=== PATIENT | male | born 1960 | race African-American/Black ===

== ENCOUNTER 2021-12-19 12:13 | Inpatient (IN) | payer OTHER ==
[2021-12-19] MEDS ORDERED: METHOCARBAMOL 500 MG TABLET PO PRN (13:47)
[2021-12-19] MEDS ORDERED: IBUPROFEN 400 MG TABLET (FP) PO PRN (13:47)
[2021-12-19] MEDS ORDERED: NICOTINE 10 MG CARTRIDGE (INHALER) IH PRN (13:47)
[2021-12-19] MEDS ORDERED: MAGNESIUM CITRATE 300 ML BOTTLE PO PRN (13:47)
[2021-12-19] MEDS ORDERED: ACETAMINOPHEN 325 MG TABLET (FP) PO PRN ×2 (13:47)
[2021-12-19] MEDS ORDERED: chlordiazePOXIDE HCL 25 MG CAPSULE PO PRN (13:47)
[2021-12-19] MEDS ORDERED: BENZOCAINE/MENTHOL (CHLORASEPTIC ) LOZENGE MM PRN (13:47)
[2021-12-19] MEDS ORDERED: BISMUTH SUBSALICYLATE 262 MG/15 ML BTL PO PRN (13:47)
[2021-12-19] MEDS ORDERED: ONDANSETRON *ODT* 4 MG TABLET SL PRN (13:47)
[2021-12-19] MEDS ORDERED: DICYCLOMINE HCL 10 MG CAPSULE PO PRN (13:47)
[2021-12-19] MEDS ORDERED: LOPERAMIDE HCL 2 MG CAPSULE PO PRN (13:47)
[2021-12-19] MEDS ORDERED: MAG HYDROX/AL HYDROX/SIMETH 30 ML UNIT-DOSE CUP PO PRN (13:47)
[2021-12-19] MEDS ORDERED: MAGNESIUM HYDROX 2400MG/30ML ORAL SUSPENSION 30 ML CUP PO PRN (13:47)
[2021-12-19 14:33] VITALS: BMI 26.0
[2021-12-19] MEDS ORDERED: chlordiazePOXIDE HCL 25 MG CAPSULE PO SCH (17:00)
[2021-12-19] MEDS: hydrOXYzine PAMOATE 25 MG CAPSULE (FP) PO SCH ×2 (18:47→22:39)
[2021-12-19] MEDS: traZODone HCL 50 MG TABLET (FP) PO SCH (22:38)
[2021-12-19] MEDS: risperiDONE 1 MG TABLET PO SCH (22:38)
[2021-12-19] MEDS: THIAMINE HCL 100 MG TABLET (FP) PO SCH (22:38)
[2021-12-19] MEDS: MELATONIN 5 MG TABLETS PO SCH (22:39)
[2021-12-20] MEDS: hydrOXYzine PAMOATE 25 MG CAPSULE (FP) PO SCH ×5 (05:54→22:56)
[2021-12-20] MEDS: PRENATAL VITAMINS W/ FOLIC ACID TABLET (FP) PO SCH (11:01)
[2021-12-20 12:04] LABS: CHLORIDE 102 mmol/L (98-107); SODIUM 137 mmol/L (136-145)
[2021-12-20 12:06] LABS: HEMOGLOBIN 12.4 GM/dL (11.7-16.9); MCHC 32.6 g/dl (32.0-35.9); MEAN CELL VOLUME 92.1 fl (80-96); PLATELET COUNT 161 10^3/uL (134-434); RBC 4.13 M/mm3 (4.00-5.60); WHITE BLOOD COUNT 7.9 K/mm3 (4.0-10.0)
[2021-12-20 12:40] LABS: BLOOD UREA NITROGEN 9.3 mg/dL (7-18)
[2021-12-20 12:41] LABS: ALBUMIN 3.2 g/dl (3.4-5.0); ANION GAP 8 MMOL/L (8-16); CO2 27 mmol/L (21-32)
[2021-12-20 12:42] LABS: CALCIUM 8.5 mg/dL (8.5-10.1)
[2021-12-20 12:45] LABS: SGOT/AST 8 U/L (15-37); SGPT/ALT 12 U/L (13-61)
[2021-12-20 12:46] LABS: BILIRUBIN,TOTAL 0.4 mg/dL (0.2-1)
[2021-12-20 12:47] LABS: ALK PHOS 115 U/L (45-117)
[2021-12-20 12:48] LABS: GLUCOSE,RANDOM 499 mg/dL (74-106)
[2021-12-20] MEDS ORDERED: INSULIN (NOVOLOG) ASPART 100 UNITS/ML 10ML VIAL ONE ×2 (13:04→17:52)
[2021-12-20] MEDS ORDERED: Insulin (LOG) Aspart 100 UNITS/ML VIAL SQ ONE (13:16)
[2021-12-20] MEDS ORDERED: INSULIN SLIDING SCALE (NOVOLOG) 1 VIAL SQ SCH (16:30)
[2021-12-20] MEDS: INSULIN SLIDING SCALE (NOVOLOG) 1 VIAL SQ SCH (17:50)
[2021-12-20] MEDS: risperiDONE 1 MG TABLET PO SCH (22:55)
[2021-12-20] MEDS: THIAMINE HCL 100 MG TABLET (FP) PO SCH (22:55)
[2021-12-20] MEDS: MELATONIN 5 MG TABLETS PO SCH (22:55)
[2021-12-20] MEDS: traZODone HCL 50 MG TABLET (FP) PO SCH (22:55)
[2021-12-21] MEDS ORDERED: chlordiazePOXIDE HCL 25 MG CAPSULE PO SCH (05:00)
[2021-12-21] MEDS: hydrOXYzine PAMOATE 25 MG CAPSULE (FP) PO SCH ×5 (05:42→23:12)
[2021-12-21] MEDS: INSULIN SLIDING SCALE (NOVOLOG) 1 VIAL SQ SCH ×3 (07:36→16:54)
[2021-12-21] MEDS: LOSARTAN 50MG/HCTZ 12.5MG 1 TAB PO SCH (10:52)
[2021-12-21] MEDS: PRENATAL VITAMINS W/ FOLIC ACID TABLET (FP) PO SCH (10:52)
[2021-12-21] MEDS ORDERED: INSULIN (NOVOLOG) ASPART 100 UNITS/ML 10ML VIAL ONE (16:57)
[2021-12-21 19:08] LABS: SARS-CoV-2 NAA Not Detected (Not Detected)
[2021-12-21] MEDS ORDERED: INSULIN (LEVEMIR) 100 UNITS/ML UNITS SQ SCH (22:00)
[2021-12-21] MEDS: MELATONIN 5 MG TABLETS PO SCH (23:12)
[2021-12-21] MEDS: risperiDONE 1 MG TABLET PO SCH (23:12)
[2021-12-21] MEDS: traZODone HCL 50 MG TABLET (FP) PO SCH (23:12)
[2021-12-21] MEDS: THIAMINE HCL 100 MG TABLET (FP) PO SCH (23:12)
[2021-12-22] MEDS ORDERED: chlordiazePOXIDE HCL 10 MG CAPSULE PO PRN
[2021-12-22] MEDS ORDERED: chlordiazePOXIDE HCL 10 MG CAPSULE PO SCH (05:00)
[2021-12-22] MEDS: hydrOXYzine PAMOATE 25 MG CAPSULE (FP) PO SCH ×3 (07:15→14:08)
[2021-12-22] MEDS: INSULIN SLIDING SCALE (NOVOLOG) 1 VIAL SQ SCH ×2 (07:30→11:24)
[2021-12-22] MEDS: PRENATAL VITAMINS W/ FOLIC ACID TABLET (FP) PO SCH (10:35)
[2021-12-22] MEDS: LOSARTAN 50MG/HCTZ 12.5MG 1 TAB PO SCH (10:35)
[2021-12-22] MEDS ORDERED: INSULIN (NOVOLOG) ASPART 100 UNITS/ML 10ML VIAL ONE (11:20)
[2021-12-22 13:02] VITALS: TEMP 96.9
[2021-12-22 13:46] VITALS: BP 139/72; PULSE 92
[2021-12-22] MEDS ORDERED: INSULIN SLIDING SCALE (NOVOLOG) 1 VIAL SQ SCH (16:30)
[2021-12-23] MEDS ORDERED: chlordiazePOXIDE HCL 10 MG CAPSULE PO SCH (05:00)
[2021-12-24] MEDS ORDERED: chlordiazePOXIDE HCL 10 MG CAPSULE PO ONE (05:00)
== END 2021-12-22 14:09 | disposition home or self-care (01) | DRG 897 ==
LOC: YASAS 12:13 → UNDOADMIN 14:58 → Y6N 14:58 → UNDODISIN 12-22 14:09
PROVIDERS: ADMIT Allergy & Immunology; ATTEND Allergy & Immunology
PROC: HZ2ZZZZ Detoxification Services for Substance Abuse Treatment (ICD-10-PCS; principal; 2021-12-19)
DX: F10.230 Alcohol dependence with withdrawal, uncomplicated (principal); F14.20 Cocaine dependence, uncomplicated; F19.282 Other psychoactive substance dependence with psychoactive substance-induced sleep disorder; L97.411 Non-pressure chronic ulcer of right heel and midfoot limited to breakdown of skin; I69.854 Hemiplegia and hemiparesis following other cerebrovascular disease affecting left non-dominant side; F17.210 Nicotine dependence, cigarettes, uncomplicated; F31.9 Bipolar disorder, unspecified; F20.9 Schizophrenia, unspecified; F19.24 Other psychoactive substance dependence with psychoactive substance-induced mood disorder; E11.65 Type 2 diabetes mellitus with hyperglycemia; E11.621 Type 2 diabetes mellitus with foot ulcer; Z79.4 Long term (current) use of insulin; Z99.89 Dependence on other enabling machines and devices; Z56.0 Unemployment, unspecified; Z59.00 Homelessness unspecified
CPT/HCPCS: 36415; 71045-TC-FY; 80053; 82962; 85027; 86780; 93005; 93010; C9803-CS; J2794; U0003; U0005

== ENCOUNTER 2024-11-12 13:36 | Emergency (ER) | payer OTHER ==
[2024-11-12 14:00] VITALS: RESP 18; BMI 22.8
[2024-11-12] MEDS ORDERED: IBUPROFEN 400 MG TABLET (FP) PO ONE (14:48)
[2024-11-12] MEDS ORDERED: oxyCODONE HCL 5 MG TABLET ONE (14:48)
[2024-11-12] MEDS: oxyCODONE HCL 5 MG TABLET PO ONE (14:54)
[2024-11-12] MEDS: IBUPROFEN 400 MG TABLET (FP) PO ONE (14:54)
[2024-11-12 22:15] VITALS: BP 153/73; PULSE 73; TEMP 98.4
== END 2024-11-12 22:19 ==
LOC: MERGE 13:36 → JER 13:36 → EDSEX 13:36 → JER 22:19
DX: G89.18 Other acute postprocedural pain (principal); M54.50 Low back pain, unspecified; R10.30 Lower abdominal pain, unspecified
CPT/HCPCS: 82962; 99283-25

== ENCOUNTER 2024-12-18 23:38 | Observation (INO) | payer OTHER ==
[2024-12-19 00:18] VITALS: BMI 31.4
[2024-12-19] MEDS ORDERED: ACETAMINOPHEN INJECTION 100 ML ONE (00:19)
[2024-12-19] MEDS: ACETAMINOPHEN 1000 MG/100 ML BAG IVPB ONE (00:25)
[2024-12-19 01:00] LABS: INR 1.08 (0.83-1.09); PROTHROMBIN TIME (PATIENT) 11.8 SEC (9.7-13.0)
[2024-12-19 01:02] LABS: ACTIVATED PTT 25.4 SECONDS (25.2-36.5)
[2024-12-19 01:03] LABS: ABSOLUTE IMMATURE GRANULOCYTES 0.01 x10^3/uL (0.0-0.031); BASOPHILS # 0.05 x10^3/uL (0.01-0.08); EOSINOPHIL % 1.5 % (0.8-7.0); EOSINOPHILS # 0.09 x10^3/uL (0.04-0.54); MCHC 32.4 g/dl (32.3-36.5); MEAN CELL VOLUME 92.9 fl (79.0-92.2); MEAN PLT VOLUME 10.7 fl (9.4-12.4); MONOCYTE # 0.53 x10^3/uL (0.30-0.82); MONOCYTE % 8.7 % (5.3-12.2); PLATELET COUNT 204 x10^3/uL (163-337); RDW 13.1 % (12.2-16.4)
[2024-12-19 01:08] LABS: POTASSIUM 3.7 mmol/L (3.5-5.1)
[2024-12-19 01:10] LABS: ALBUMIN 3.3 g/dl (3.4-5.0); BLOOD UREA NITROGEN 13.3 mg/dL (7-18); CALCIUM 8.8 mg/dL (8.5-10.1)
[2024-12-19 01:14] LABS: CREATININE 0.8 mg/dL (0.55-1.3)
[2024-12-19 01:15] LABS: BILIRUBIN,TOTAL 0.4 mg/dL (0.2-1); TOT PROT 6.4 g/dl (6.4-8.2)
[2024-12-19] MEDS ORDERED: MORPHINE SULFATE 2 MG/ML SYRINGE IVPUSH PRN (02:15)
[2024-12-19] MEDS ORDERED: NITROGLYCERIN SUBLINGUAL 1/150 0.4 MG TAB SL PRN (02:15)
[2024-12-19] MEDS ORDERED: ACETAMINOPHEN 325 MG TABLET (FP) PO PRN (03:10)
[2024-12-19] MEDS ORDERED: PATIENT'S OWN MEDICATION (NON-FORMULARY) (Dulaglutide [Trulicity] 1.5 MG/0.5 ML Pen.Injctr SQ SCH (03:15)
[2024-12-19] MEDS ORDERED: traZODone HCL 100 MG TABLET (FP) ONE (03:41)
[2024-12-19] MEDS: traZODone HCL 50 MG TABLET (FP) PO ONE (04:09)
[2024-12-19] MEDS: MELATONIN 1 MG TABLET PO ONE (04:09)
[2024-12-19 04:58] VITALS: BP 135/90; PULSE 65; RESP 18; TEMP 97.5
[2024-12-19] MEDS: INSULIN (NOVOLOG) ASPART 100 UNITS/ML 10ML VIAL SQ SCH (06:13)
[2024-12-19] MEDS: INSULIN ASPART SLIDING SCALE (NOVOLOG) 1 VIAL SQ SCH (06:13)
[2024-12-19] MEDS ORDERED: INSULIN (NOVOLOG) ASPART 100 UNITS/ML 10ML VIAL SQ SCH (07:00)
[2024-12-19] MEDS: POLYETHYLENE GLYCOL (HEALTHYLAX) 3350 17 GM PACKET PO SCH (09:48)
[2024-12-19] MEDS: ASCORBIC ACID 500 MG TABLET (FP) PO SCH (09:49)
[2024-12-19] MEDS: PANTOPRAZOLE 40 MG TABLET PO SCH (09:49)
[2024-12-19] MEDS: ASPIRIN COATED 81 MG TABLET.EC PO SCH (09:49)
[2024-12-19] MEDS: ENOXAPARIN NA (PORCINE) 40 MG/0.4 ML DISP.SYRIN SQ SCH (09:50)
[2024-12-19] MEDS: ARTIFICIAL TEARS OPHTHALMIC DROPS OU SCH (09:50)
[2024-12-19] MEDS ORDERED: ASPIRIN COATED 81 MG TABLET.EC PO SCH (10:00)
[2024-12-19] MEDS: risperiDONE 1 MG TABLET PO SCH (11:38)
[2024-12-19] MEDS ORDERED: CLOPIDOGREL BISULFATE 75 MG TABLET (FP) PO SCH (22:00)
[2024-12-19] MEDS ORDERED: SENNOSIDES 8.6MG TABLET (FP) PO SCH (22:00)
[2024-12-19] MEDS ORDERED: traZODone HCL 100 MG TABLET (FP) PO SCH (22:00)
[2024-12-19] MEDS ORDERED: INSULIN GLARGINE (LANTUS) 100 UNITS/ML UNITS SQ SCH ×2 (22:00)
[2024-12-19] MEDS ORDERED: ATORVASTATIN CA 80 MG TABLET (FP) PO SCH (22:00)
[2024-12-19] MEDS ORDERED: MELATONIN 1 MG TABLET PO SCH (22:00)
[2024-12-19] MEDS ORDERED: ATORVASTATIN CA 40 MG TABLET (FP) PO SCH (22:00)
== END 2024-12-19 14:36 ==
LOC: JER 23:38 → JERBED 12-19 01:52 → J4S 12-19 04:25
PROVIDERS: ADMIT Hospitalist; ATTEND Internal Medicine
PROC: 3E033NZ Introduction of Analgesics, Hypnotics, Sedatives into Peripheral Vein, Percutaneous Approach (ICD-10-PCS; principal; 2024-12-19)
DX: R07.89 Other chest pain (principal); F31.9 Bipolar disorder, unspecified; F20.9 Schizophrenia, unspecified; E11.9 Type 2 diabetes mellitus without complications; F19.99 Other psychoactive substance use, unspecified with unspecified psychoactive substance-induced disorder; Z79.4 Long term (current) use of insulin; Z86.73 Personal history of transient ischemic attack (TIA), and cerebral infarction without residual deficits; Z87.891 Personal history of nicotine dependence; Z88.8 Allergy status to other drugs, medicaments and biological substances
CPT/HCPCS: 36415; 71045-TC-FY; 80053; 82550; 82553; 82962; 83036; 83735; 83880; 84484; 85025; 85610; 85730; 93005; 93010; 93306-TC; 96374; 99285-25; G0378; J0131

== ENCOUNTER 2025-01-08 08:07 | Emergency (ER) | payer OTHER ==
[2025-01-08 08:39] VITALS: BMI 23.1
[2025-01-08] MEDS: SODIUM CHLORIDE 0.9% 500 ML INFUS.BAG IV ONE (09:10)
[2025-01-08 09:25] LABS: ABSOLUTE IMMATURE GRANULOCYTES 0.02 x10^3/uL (0.0-0.031); BASOPHILS # 0.03 x10^3/uL (0.01-0.08); EOSINOPHIL % 0.6 % (0.8-7.0); EOSINOPHILS # 0.05 x10^3/uL (0.04-0.54); HEMATOCRIT 38.9 % (40.1-51.0); HEMOGLOBIN 12.8 g/dL (13.7-17.5); MCHC 32.9 g/dl (32.3-36.5); MEAN CELL VOLUME 93.3 fl (79.0-92.2); MEAN PLT VOLUME 10.7 fl (9.4-12.4); MONOCYTE # 0.64 x10^3/uL (0.30-0.82); MONOCYTE % 7.8 % (5.3-12.2); PLATELET COUNT 228 x10^3/uL (163-337); RDW 13.1 % (12.2-16.4)
[2025-01-08 09:39] LABS: POTASSIUM 3.6 mmol/L (3.5-5.1)
[2025-01-08 09:43] LABS: BLOOD UREA NITROGEN 14.4 mg/dL (7-18); CALCIUM 9.7 mg/dL (8.5-10.1)
[2025-01-08 09:46] LABS: CREATININE 0.7 mg/dL (0.55-1.3)
[2025-01-08 09:47] LABS: BILIRUBIN,TOTAL 0.5 mg/dL (0.2-1); TOT PROT 7.5 g/dl (6.4-8.2)
[2025-01-08] MEDS ORDERED: DEXTROSE 50%-WATER 25 GM/50 ML DISP.SYRIN ONE (10:25)
[2025-01-08] MEDS: DEXTROSE 50%-WATER - 25 GM/50 ML VIAL IVPUSH ONE (10:30)
[2025-01-08 10:37] LABS: HCV DIAGNOSTIC IN-HOUSE W/RFLX NON-REACTIVE (NONREACTIVE); HIV INTERPRETATION NEGATIVE (NEGATIVE)
[2025-01-08 16:01] VITALS: BP 156/78; PULSE 64; RESP 18; TEMP 98.2
== END 2025-01-08 16:02 ==
LOC: JER 08:07
DX: R00.2 Palpitations (principal); E11.649 Type 2 diabetes mellitus with hypoglycemia without coma; Z79.4 Long term (current) use of insulin
CPT/HCPCS: 36415; 71045-TC-FY; 80053; 82962; 84443; 84484; 85025; 86803; 87389; 93005; 93010; 99285-25

== ENCOUNTER 2025-01-12 11:30 | Inpatient (IN) | payer OTHER ==
[2025-01-12 12:01] VITALS: BMI 23.3
[2025-01-12 13:00] LABS: ABSOLUTE IMMATURE GRANULOCYTES 0.03 x10^3/uL (0.0-0.031); BASOPHILS # 0.01 x10^3/uL (0.01-0.08); HEMATOCRIT 39.5 % (40.1-51.0); HEMOGLOBIN 12.7 g/dL (13.7-17.5); MCHC 32.2 g/dl (32.3-36.5); MEAN CELL VOLUME 93.8 fl (79.0-92.2); MEAN PLT VOLUME 10.8 fl (9.4-12.4); MONOCYTE # 0.64 x10^3/uL (0.30-0.82); MONOCYTE % 8.8 % (5.3-12.2); PLATELET COUNT 186 x10^3/uL (163-337); RDW 13.2 % (12.2-16.4); VENOUS BASE EXCESS 1.8 mmol/L (-2-2); VENOUS O2 SATURATION 25.9 % (70-80); VENOUS PCO2 50.9 mmHg (38-52); VENOUS PH 7.36 (7.310-7.410)
[2025-01-12 13:08] LABS: INR 1.26 (0.83-1.09); PROTHROMBIN TIME (PATIENT) 13.7 SEC (9.7-13.0)
[2025-01-12 13:10] LABS: ACTIVATED PTT 33.3 SECONDS (25.2-36.5)
[2025-01-12 13:24] LABS: POTASSIUM 4.1 mmol/L (3.5-5.1)
[2025-01-12 13:27] LABS: ALBUMIN 3.9 g/dl (3.4-5.0); BLOOD UREA NITROGEN 13.5 mg/dL (7-18); CALCIUM 9.6 mg/dL (8.5-10.1)
[2025-01-12 13:28] LABS: MAGNESIUM 1.9 mg/dL (1.8-2.4)
[2025-01-12 13:30] LABS: CREATININE 0.9 mg/dL (0.55-1.3)
[2025-01-12 13:31] LABS: BILIRUBIN,TOTAL 0.7 mg/dL (0.2-1); TOT PROT 7.8 g/dl (6.4-8.2)
[2025-01-12] MEDS ORDERED: OSELTAMIVIR PHOSPHATE 30 MG CAPSULE ONE (14:06)
[2025-01-12] MEDS ORDERED: VANCOMYCIN 1 GM PREMIX (F) 1 GM/200 ML BAG ONE (14:06)
[2025-01-12] MEDS ORDERED: PIPERACILLIN/TAZOB 3.375 GM 3.375 GM/50 ML BAG IVPB ONE (14:06)
[2025-01-12] MEDS: PIPERACILLIN/TAZOB 3.375 GM 3.375 GM in DEXTROSE 5%-WATER - 50 ML IVPB ONE (14:27)
[2025-01-12] MEDS: OSELTAMIVIR PHOSPHATE 30 MG CAPSULE PO ONE (14:27)
[2025-01-12] MEDS: VANCOMYCIN 1,000 MG in DEXTROSE 5%-WATER - 250 ML IVPB ONE (14:45)
[2025-01-12 15:27] LABS: EPI CELLS 13 /uL (0-25.1); HYALINE CASTS 0 /uL (0-3.1); PH,URINE 5.5 (5.0-8.0); URINE APPEARANCE CLEAR; URINE BACTERIA 22 /uL (0-1359); URINE BILIRUBIN NEGATIVE (NEGATIVE); URINE COLOR YELLOW; URINE GLUCOSE (UA) NEGATIVE (NEGATIVE); URINE KETONE 1+ (NEGATIVE); URINE LEUK ESTERASE NEGATIVE (NEGATIVE); URINE NITRITE NEGATIVE (NEGATIVE); URINE PROTEIN 2+ (NEGATIVE); URINE RBC 88 /uL (0-23.9); URINE WBC 15 /uL (0-25.8)
[2025-01-12] MEDS: INSULIN ASPART SLIDING SCALE (NOVOLOG) 1 VIAL SQ SCH (17:11)
[2025-01-12] MEDS: ACETAMINOPHEN 1000 MG/100 ML BAG IVPB PRN (18:50)
[2025-01-12] MEDS ORDERED: SODIUM CHLORIDE 1,000 ML IV SCH (19:00)
[2025-01-12] MEDS: LACTATED RINGERS SOLUTION 1,000 ML/1,000 ML INFUS.BAG IV SCH (19:25)
[2025-01-12] MEDS: GABAPENTIN 300 MG CAPSULE PO SCH (19:32)
[2025-01-12] MEDS: CLOPIDOGREL BISULFATE 75 MG TABLET (FP) PO SCH (21:32)
[2025-01-12] MEDS: ATORVASTATIN CA 80 MG TABLET (FP) PO SCH (21:32)
[2025-01-12] MEDS: traZODone HCL 100 MG TABLET (FP) PO SCH (21:32)
[2025-01-12] MEDS: OSELTAMIVIR PHOSPHATE 75 MG CAPSULE PO SCH (21:32)
[2025-01-13 08:45] LABS: HEMATOCRIT 36.4 % (40.1-51.0); MEAN CELL VOLUME 92.4 fl (79.0-92.2); MEAN PLT VOLUME 11.3 fl (9.4-12.4); PLATELET COUNT 161 x10^3/uL (163-337); RDW 13.1 % (12.2-16.4)
[2025-01-13 08:57] LABS: POTASSIUM 3.8 mmol/L (3.5-5.1)
[2025-01-13 09:11] LABS: CALCIUM 8.9 mg/dL (8.5-10.1)
[2025-01-13 09:12] LABS: ALBUMIN 3.3 g/dl (3.4-5.0); BLOOD UREA NITROGEN 14.4 mg/dL (7-18)
[2025-01-13 09:15] LABS: CREATININE 0.9 mg/dL (0.55-1.3); PHOSPHOROUS 4.5 mg/dL (2.5-4.9)
[2025-01-13 09:16] LABS: TOT PROT 6.6 g/dl (6.4-8.2)
[2025-01-13 09:18] LABS: BILIRUBIN,TOTAL 0.6 mg/dL (0.2-1)
[2025-01-13] MEDS: PANTOPRAZOLE 40 MG TABLET PO SCH (09:33)
[2025-01-13] MEDS: ASPIRIN COATED 81 MG TABLET.EC PO SCH (09:33)
[2025-01-13] MEDS: ARTIFICIAL TEARS OPHTHALMIC DROPS OU SCH (09:33)
[2025-01-13] MEDS: risperiDONE 1 MG TABLET PO SCH (09:33)
[2025-01-13] MEDS: POLYETHYLENE GLYCOL (HEALTHYLAX) 3350 17 GM PACKET PO SCH (09:34)
[2025-01-13 11:36] VITALS: RESP 18
[2025-01-13] MEDS: GABAPENTIN 300 MG CAPSULE PO SCH (14:30)
[2025-01-14 10:37] LABS: MEAN CELL VOLUME 92.8 fl (79.0-92.2)
[2025-01-14 10:39] LABS: HEMATOCRIT 34.7 % (40.1-51.0); HEMOGLOBIN 11.2 g/dL (13.7-17.5); MCHC 32.3 g/dl (32.3-36.5); MEAN PLT VOLUME 11.3 fl (9.4-12.4); PLATELET COUNT 150 x10^3/uL (163-337); RDW 13.1 % (12.2-16.4)
[2025-01-14 11:05] LABS: POTASSIUM 3.5 mmol/L (3.5-5.1)
[2025-01-14 11:33] LABS: BLOOD UREA NITROGEN 12.2 mg/dL (7-18); CALCIUM 8.7 mg/dL (8.5-10.1)
[2025-01-14 11:36] LABS: CREATININE 0.7 mg/dL (0.55-1.3)
[2025-01-14 11:38] LABS: BILIRUBIN,TOTAL 0.5 mg/dL (0.2-1); TOT PROT 6.2 g/dl (6.4-8.2)
[2025-01-15 08:33] LABS: ABSOLUTE IMMATURE GRANULOCYTES 0.01 x10^3/uL (0.0-0.031); BASOPHILS # 0.02 x10^3/uL (0.01-0.08); EOSINOPHIL % 2.4 % (0.8-7.0); HEMATOCRIT 34.4 % (40.1-51.0); HEMOGLOBIN 11.1 g/dL (13.7-17.5); MCHC 32.3 g/dl (32.3-36.5); MEAN PLT VOLUME 11.4 fl (9.4-12.4); MONOCYTE # 0.42 x10^3/uL (0.30-0.82); MONOCYTE % 10.2 % (5.3-12.2); PLATELET COUNT 162 x10^3/uL (163-337); RDW 12.9 % (12.2-16.4)
[2025-01-15 08:52] LABS: POTASSIUM 3.7 mmol/L (3.5-5.1)
[2025-01-15 08:56] LABS: CALCIUM 8.9 mg/dL (8.5-10.1)
[2025-01-15 08:57] LABS: BLOOD UREA NITROGEN 11.5 mg/dL (7-18); MAGNESIUM 2.1 mg/dL (1.8-2.4)
[2025-01-15 09:00] LABS: CREATININE 0.7 mg/dL (0.55-1.3)
[2025-01-15 09:01] LABS: BILIRUBIN,TOTAL 0.6 mg/dL (0.2-1); TOT PROT 6.2 g/dl (6.4-8.2)
[2025-01-15 10:25] VITALS: BP 119/69; PULSE 77; TEMP 98
== END 2025-01-15 09:22 | DRG 194 ==
LOC: JER 11:30 → JERBED 13:55 → J8W 17:55
PROVIDERS: ADMIT Internal Medicine; ATTEND Nurse Practitioner Family
DX: J10.1 Influenza due to other identified influenza virus with other respiratory manifestations (principal); I69.354 Hemiplegia and hemiparesis following cerebral infarction affecting left non-dominant side; E11.9 Type 2 diabetes mellitus without complications; F31.9 Bipolar disorder, unspecified; F20.9 Schizophrenia, unspecified
CPT/HCPCS: 0241U-QW; 36415; 71045-TC-FY; 80053; 81003; 82803; 82962; 83735; 84100; 84484; 85025; 85027; 85610; 85730; 87040; 87086; 93005; 93010; 97116-GP; 97161-GP; 99285-25; J0131